=== PATIENT | female | born 1930 | race Caucasian/White ===

== ENCOUNTER 2017-03-19 18:00 | Inpatient (IN) | payer BC ==
--- NOTE | ~2017-03-19 | HP ---
History And Physical [place] [id number] [facility] [place]. [address] NAME: NELIDA CARRINGTON : 32 STATUS : ADM Gladys PAT#: [id number] AGE: 86 ADM/REG DATE : 03/19/17 MR#: [id number] REPORT SERV DATE: 03/20/17 DICTATED BY: JULIO DUBOIS DATE: 03/20/17 REPORT STATUS : Draft TRANSCRIBED BY: MODL DATE: 03/20/17 DATE OF ADMISSION: 03/19/2017 CHIEF COMPLAINT: Fall at home and shortness of breath. HISTORY OF PRESENT ILLNESS: This is an 86-year-old female who presents to the emergency room at [facility] after she sustained a fall and had severe difficulty breathing. History is obtained from the patient, her family who is at bedside, and reviewing data available on the [employer] system. According to Mrs. Carrington, she was in her usual state of health at home when she inadvertently tripped over another leg and fell down in her room. In the process of doing this, she hit her chest against a doorknob and started experiencing severe pain in the left side along with severe shortness of breath. She was unable to get up, and her who was in the next room who had come running in after hearing her fall was unable to help her get up. They called 911 and the used equipment sales representative who showed up were able to get her up and bring her to the hospital. In the emergency room, she had a moderate left hemopneumothorax as reported on the CT scan of her chest. This was as a result of fracture of the ribs 9, 10, and 11 on the left side. She had mild elevation of her troponin as well. The ER physician had placed a PneumoDart and Hospitalist Service was asked to admit her for further evaluation and treatment. At the time of my evaluation, Mrs. Carrington had chest pain due to rib fractures. Otherwise, she was quite comfortable. She had no palpitations or orthopnea. She had no cough, hemoptysis, night sweats, or weight loss prior to her fall. No history of loss of consciousness. She did not have any fevers, chills, nausea, vomiting, diarrhea, hematemesis, hematochezia, or hematuria. No other history of recent travel or exposures other than those mentioned above. PAST MEDICAL HISTORY: Significant for history of hypertension and history of paroxysmal atrial fibrillation. SOCIAL HISTORY: She does not smoke, drink, or use recreational drugs. FAMILY HISTORY: Noncontributory. MEDICATIONS: At home were reviewed by me in the chart today and reordered by me. REVIEW OF SYSTEMS: As in history of present illness. All other systems were reviewed in detail and are quite unremarkable. PHYSICAL EXAMINATION: GENERAL: This is a pleasant 86-year-old, not in any acute distress. HEENT: Her head is atraumatic, normocephalic. She is alert, awake, oriented to time, place, History And Physical [address] [address] NAME: NELIDA CARRINGTON : 32 STATUS : ADM Gladys PAT#: [id number] AGE: 86 ADM/REG DATE : 03/19/17 MR#: [id number] REPORT SERV DATE: 03/20/17 DICTATED BY: JULIO DUBOIS DATE: 03/20/17 REPORT STATUS : Draft TRANSCRIBED BY: RUBINA DATE: 03/20/17 and person. Her pupils are equal, reacting to light and accommodating. External ocular muscles are intact. Membranes are moist. Sclerae are nonicteric. NECK: Supple with no jugular venous distention, lymphadenopathy, or thyromegaly. LUNGS: Clear to auscultation. There were no wheezes, rubs, or crackles. HEART: Heart sounds were regular with no murmurs, rubs, or gallops. ABDOMEN: Soft, nontender. Bowel sounds are present. EXTREMITIES: No cyanosis, clubbing, or edema. NEUROLOGIC: Grossly intact. No focal sensory or motor deficits. She was able to move all four extremities. Higher functions were intact. VITAL SIGNS: Her vital signs today showed a temperature of 97.8, pulse was 71, respirations 18 to 20 a minute, blood pressure was 161/69, and oxygen saturations were 93% breathing 2 L of oxygen via nasal cannula. LABORATORY DATA: Reviewed on the [employer] system showed a normal CMP with a blood glucose of 98. Liver parameters were within normal limits. Her troponin was 0.04, and CBC was essentially within normal limits as well. Urinalysis was grossly unremarkable today. Radiology films were unable to be reviewed by me on the PAC system. Only virtual radiology was able to see the films. The reports for the CT scans were reviewed by me. According to the CT scan report, there is moderate left hemopneumothorax with fracture ribs on 9, 10, and 11. A 12-lead EKG done in the emergency room was reviewed and interpreted by me. There is normal sinus rhythm at a rate of 69 per minute with right bundle branch block. IMPRESSION: 1. Fall at home. 2. Moderate left hemopneumothorax, status post small bowel chest tube placement by the ER physician. 3. Rib fractures on 9, 10, and 11 on the left chest. 4. Elevated troponin. 5. Right bundle-branch block. 6. Hypertension. 7. History of atrial fibrillation, currently in sinus rhythm. PLAN: We will admit Mrs. Carrington to the Hospitalist Service with telemetry for a 24-hour observation period. We will establish pain control with Dilaudid given intravenously in very low doses as needed. We will start her on bronchodilator treatments, continue supplemental oxygen therapy, and monitor her oxygen saturations closely. A small bowel 18-Colombian chest tube was placed in the emergency room by Dr. Landis and postprocedure films were reviewed by him and reported by him as a solution of the pneumothorax. Thoracic Surgery was called by Dr. Landis, and he spoke with Dr. Cabrales, who was okay with the procedure and admission to the Hospitalist Service and they will see him in the morning. Her atrial fibrillation is now in sinus rhythm. We will follow serial troponins to rule out acute coronary syndrome as well. We will continue all her other medications and treatments at this time. We will check her CBC and CMP in the morning as well and make sure there is no further worsening of her hemothorax with a chest x-ray done in the morning as well. Please see today's orders for all the details. I have discussed the above plans with the patient and the family. They are agreeable to the above History And Physical [address] [address] NAME: NELIDA CARRINGTON : 32 STATUS : ADM Gladys PAT#: [id number] AGE: 86 ADM/REG DATE : 03/19/17 MR#: [id number] REPORT SERV DATE: 03/20/17 DICTATED BY: JULIO DUBOIS DATE: 03/20/17 REPORT STATUS : Draft TRANSCRIBED BY: RUBINA DATE: 03/20/17 recommendations. Hospitalist Service will be following her during her stay here. /RUBINA Julio Dubois M.D. / [id number] CC: Destin Rawls M.D.
--- NOTE | ~2017-03-19 | DS ---
Discharge Summary [facility] [address] [place] [address] NAME: NELIDA CARRINGTON : 32 STATUS : DIS IN PAT#: [id number] AGE: 86 ADM/REG DATE : 03/19/17 MR#: [id number] REPORT SERV DATE: 03/27/17 DICTATED BY: QUINN PAVON DATE: 03/26/17 REPORT STATUS : Draft TRANSCRIBED BY: MODL DATE: 03/26/17 ADMISSION DATE: 03/19/2017 DISCHARGE DATE: 03/26/2017 Ms Carrington is an 86-year-old female with a history of hypertension, who presented to the hospital with a complaint of a ground level fall and shortness of breath. For further details please refer to H and P dictated by Dr. Pisano on 03/19/2017. HOSPITAL COURSE: I assumed care of the patient on 03/23/2017. At the time of my assumption of care, the patient already had a chest tube placed with re-expansion of her lungs, she was being followed by CT Surgery. Tube was subsequently pulled and the patient tolerated the procedure. Also at the time of my evaluation, the patient appeared to be very unsteady feet and it was determined that home would not be an appropriate discharge for her given that she presented to hospital with complications of a ground level fall, therefore Case Management was subsequently consulted to assist with placement. The patient had an extended stay due to difficulty finding rehab placement for patient due to her insurance. Case Management has worked diligently trying to find a place for the patient, a facility has been found, insurance approval has been obtained, and under my care the patient has remained hemodynamically stable. Given completion of workup and resolution of presenting symptoms, the patient was subsequently be discharged to rehab. Plan has been discussed with the patient and family who voiced understanding and are agreeable with this plan. For further details about pulmonary involvement please refer to consultation note by Dr. Cabrales on 03/22/2017. DISCHARGE DIAGNOSES: 1. Left pneumothorax. 2. Multiple rib fractures. 3. Hypertension. 4. Rheumatoid arthritis. 5. Hypokalemia. 6. Hyponatremia. 7. Constipation. DISCHARGE MEDICATIONS: 1. Amlodipine 5 mg p.o. daily. 2. Atenolol 50 mg p.o. twice a day. 3. Ranitidine 150 mg p.o. at bedtime. 4. Senna two tablets p.o. at bedtime. 5. DuoNeb q.4 hours p.r.n. 6. [place] 5/325 mg tablet, take one to two tablets p.o. q.4 hours p.r.n. for pain. 7. Ativan 0.5 mg p.o. p.r.n. for anxiety. 8. Vitamin D 1000 units p.o. daily. 9. Vitamin B12 1000 mcg p.o. daily. 10.Folic acid 800 mcg p.o. daily. 11.Calcium with vitamin D 1500 mg p.o. daily. 12.Methotrexate 10 mg p.o. q.7 days. Discharge Summary [address] [address] NAME: NELIDA CARRINGTON : 32 STATUS : DIS IN PAT#: [id number] AGE: 86 ADM/REG DATE : 03/19/17 MR#: [id number] REPORT SERV DATE: 03/27/17 DICTATED BY: QUINN PAVON DATE: 03/26/17 REPORT STATUS : Draft TRANSCRIBED BY: RUBINA DATE: 03/26/17 IMAGIN. Chest x-ray, PA and lateral. Impression:. a. Status post removal of left chest tube, there is no pneumothorax. b. Persistent left pleural effusion with left bibasilar atelectasis or consolidation. 2. CT chest without contrast. Impression: Small to moderate left pneumothorax with small left pleural fluid likely represents some hemothorax component. For further details please refer to CT chest without contrast obtained on 03/19/2017. CONSULTANTS: Pulmonology. DISPOSITION: The patient will be discharged to rehab. ACTIVITY: As tolerated. DIET: Regular. Greater than 30 minutes were spent on coordinating care, medication reconciliation, dictation of note. DICTATED BY: MD MARI Rushing/RUBINA Quinn Pavon MD / [id number] CC: MD Arun Rushing M.D.
--- NOTE | ~2017-03-19 | CN ---
Consultation Report [facility] [address] [place]. [address] NAME: NELIDA CARRINGTON : 32 STATUS : ADM Gladys PAT#: [id number] AGE: 86 ADM/REG DATE : 03/19/17 MR#: [id number] REPORT SERV DATE: 03/22/17 DICTATED BY: EBONY CABRALES JR. DATE: 03/22/17 REPORT STATUS : Draft TRANSCRIBED BY: MODL DATE: 03/22/17 CONSULTATION DATE OF CONSULTATION: 03/22/2017 REASON FOR CONSULTATION: Pneumothorax. BRIEF HISTORY: This is an 86-year-old white female who presented to the emergency room at [facility] on 03/20 after falling. She had tripped and fell against a doorknob and started experiencing severe pain along her left chest wall with associated severe shortness of breath. She eventually was brought to the emergency room were on chest x-ray as well as CT scan. She was noted to have a moderate left hydropneumothorax with fractures of the left 9, 10, and 11 ribs. There is also mild elevation of troponin. She underwent placement of a PneumoDart by the ER physician. The lung re-expanded well on x-ray and we were asked to see her for further recommendations. 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 PAST SURGICAL HISTORY: Includes right and left hand surgery, hysterectomy, tonsillectomy and adenoidectomy, removal of a cyst in her left breast twice, left eye stent and cataract removal, partial gastrectomy in colon resection, vertebral cement placement after fracture, and kyphoplasty. SOCIAL HISTORY: The patient does not smoke, drink alcohol, or use recreational drugs. She is and lives in [facility]. FAMILY HISTORY: Not significant for any early coronary artery disease or malignancies. It is otherwise noncontributory. ALLERGIES: PERCOCET AND SULFA, BOTH OF WHICH CAUSE A RASH. CIPRO, WHICH CAUSES A RASH. MORPHINE AND ACETAMINOPHEN, WHICH CAUSE GI UPSET. HOME MEDICATIONS: Include Tenormin 50 mg p.o. twice daily, Norvasc 5 mg p.o. daily, aspirin 81 mg p.o. daily, Zantac 150 mg p.o. daily at bedtime, vitamin D 1000 units p.o. daily, vitamin B12 1000 mcg p.o. daily, folic acid 800 mg p.o. daily, GenTeal one drop to the eyes three times daily as needed for dryness, Ativan 0.5 mg p.o. daily as needed for anxiety, multivitamin one p.o. daily, Os-Rafael plus D 500 mg tablets three p.o. daily, methotrexate 10 mg p.o. every seven days four tablets one time a week on Wednesday. REVIEW OF SYSTEMS: Significant for joint pain, indigestion, chest wall pain. Complete 12-point review of systems done, all other systems negative except the above-mentioned pertinent positives in Consultation Report [facility] [address] [place]. [address] NAME: NELIDA CARRINGTON : 32 STATUS : ADM Gladys PAT#: [id number] AGE: 86 ADM/REG DATE : 03/19/17 MR#: [id number] REPORT SERV DATE: 03/22/17 DICTATED BY: EBONY CABRALES JR. DATE: 03/22/17 REPORT STATUS : Draft TRANSCRIBED BY: RUBINA DATE: 03/22/17 the history of present illness. PHYSICAL EXAMINATION: GENERAL: An 86-year-old, white female, alert, in no acute distress appearing her stated age. HEAD, EARS, EYES, NOSE, AND THROAT: Normocephalic, atraumatic. Pupils equal, round and reactive to light. Ears, nose, and throat without drainage, lesions, or exudates noted. NECK: Supple. No lymphadenopathy. JVD or bruits noted. Trachea midline. No obvious goiter. CHEST: Symmetrical bilateral movement noted. Chest wall deformities noted. There is an indwelling left chest tube. CARDIOVASCULAR: Revealed regular rate and rhythm. S1, S2. No gallop, murmur, or rub. RESPIRATORY: Lungs clear, but diminished in the bases to anterior auscultation. GASTROINTESTINAL: Abdomen is soft, nontender, nondistended. Positive bowel sounds in all four quadrants. No hepatosplenomegaly noted. EXTREMITIES: Without clubbing, cyanosis, or edema. 3+ pulses bilaterally. NEURO: All 12 cranial nerves intact. No focal neurologic deficits noted. She is alert and oriented x3. MUSCULOSKELETAL: With rheumatoid arthritis changes in her hands and feet. There are no significant bony abnormalities otherwise. Normal range of motion in all four extremities. : The patient voids without difficulty, otherwise deferred. SKIN: Warm and dry with no breakdown or lesions noted. Normal turgor. CONSTITUTIONAL: Blood pressure 151/69, oxygen saturation 96%, temperature 98.4, respirations 18, weight 48.7 kg, height 4 feet 11 inches. PSYCH: Normal mood, affect, and pleasant. Answers all questions appropriately. HEMATOLOGIC/LYMPHATIC: Without any obvious petechiae or ecchymosis noted. There is no supraclavicular, cervical, or axillary lymphadenopathy noted. DATA: CT of the chest performed 03/19/2017 showing small to moderate left pneumothorax with small left pleural effusion. There is patchy consolidation in the posterior basilar aspect of the left lower lobe possibly representing contusion, atelectasis, and/or pneumonia. There is fractures of the left 7th, 8th, and 11th ribs. There is evidence of previous vertebral augmentations at T12 through L2. Chest x-ray dated 03/22/2017 showing no pneumothorax. There is continued left basilar consolidation and atelectasis with possible small left effusion. Labs on 03/22/2017; sodium 134, potassium 3.7, BUN 8, creatinine 0.41, glucose 91. White blood count 4.7, hemoglobin 11.9, hematocrit 34.1, platelet 158. IMPRESSION/PLAN: An 86-year-old white female, status post fall with fractures of multiple left ribs. She had a large pneumothorax, which re-expanded with placement of a pigtail catheter in the left chest. There is still contusion and/or atelectasis of the left base. We are asked to see her for management of chest tube and further recommendations. Chest tube has been clamped overnight, and she has had no significant changes. Likely, this could Consultation Report [place] [id number] [place]. [address] NAME: NELIDA CARRINGTON : 32 STATUS : ADM Gladys PAT#: [id number] AGE: 86 ADM/REG DATE : 03/19/17 MR#: [id number] REPORT SERV DATE: 03/22/17 DICTATED BY: EBONY CABRALES JR. DATE: 03/22/17 REPORT STATUS : Draft TRANSCRIBED BY: MODL DATE: 03/22/17 be removed. She will need to be followed with chest x-ray for the next few weeks just to make sure there is no accumulation of pleural fluid. She also will need to be monitored for development of pneumonias. We will plan on removing the chest tube later today and proceed as outlined above. DICTATED BY: TORREY Bourgeois/RUBINA Ebony Cabrales Jr., M.D. / [id number] CC: Brian Tate M.D.
[~2017-03-19 18:00] MED LIST: ACET500CAP PO; ACIPHEX PO; ASAB PO; ATEN50 PO; ATV.5 PO; ATV1 PO; B12; BENICAR40 PO; CALTRA600D PO; CENTRUM TAB1 TAB PO; CYANO1000T PO; FOLIC ACI; FOLIC ACID400 MC1 PO; FOLIC PO; GARLIQUE PO; GENTEAL OPH; HYDROCHLOROT25 MG PO; LORTAB 5 PO; MTX2.5 PO; MULTIPLE VIT PO; NEXIUM40 PO; NORCO1 TA1 PO; NORV10 PO; NORV5 PO; OS500+D PO; PLAVIX PO; PRILOSEC40 MG PO; PROTONIX PO; PROTONIX20 MG PO; RASUVO SC; SUCR PO; TREXALL10 MG PO; TYLENOL ARTH650 MG PO; VITAMIN D1000 UNI1 PO; VITAMIN D31000 UNIT PO; ZANTAC 150 PO
[2017-03-19 19:47] LABS: BASOPHILS 0.1 %; BASOPHILS ABSOLUTE 0.01 10/3/uL (0.0-0.16); EOSINOPHILS 1.2 %; ER CBC TAT 0 Hrs 07 Mins; HEMATOCRIT 38.3 % (36.0-48.0); HEMOGLOBIN 12.7 g/dL (12.0-16.0); IMMATURE GRANULOCYTES 0.1 %; IMMATURE GRANULOCYTES ABSOLUTE 0.01 10/3/uL (0.0-0.11); LYMPHOCYTES 8.5 %; LYMPHOCYTES ABSOLUTE 0.71 10/3/uL (0.67-4.30); MEAN CORPUS HGB CONC 33.2 g/dL (32.0-36.0); MEAN CORPUSCULAR HEMOGLOB 31.4 pg (26.0-34.0); MEAN CORPUSCULAR VOLUME 94.8 fL (80-100); MEAN PLATELET VOLUME 9.7 fL (9.2-13.0); MONOCYTES 5.7 %; MONOCYTES ABSOLUTE 0.48 10/3/uL (0.21-1.20); NEUTROPHILS 84.4 %; NEUTROPHILS ABSOLUTE 7.04 10/3/uL (2.02-8.40); RBC DISTRIBUTION WIDTH 13.6 % (12.0-16.0); RED CELL COUNT 4.04 10/6/uL (4.0-5.6); WHITE BLOOD CELLS 8.4 10/3/uL (4.5-10.5)
[2017-03-19 19:53] LABS: MANUAL DIFF NO %; PLATELET COUNT 190 10/3/uL (150-400)
[2017-03-19 20:03] LABS: ALBUMIN 3.3 G/DL (3.5-5.0); ALKALINE PHOSPHATASE 91 U/L (45-117); BUN (BLOOD UREA NITROGEN) 18 MG/DL (6-23); CALCIUM, SERUM 8.3 MG/DL (8.5-10.4); CHLORIDE, SERUM 102 MMOL/L (96-112); CO2 (CARBON DIOXIDE) 26 MMOL/L (24-34); CREATININE 0.73 MG/DL (0.55-1.02); GFR AFRICAN AMERICAN 88 ML/MIN (>=60); GFR NON AFRICAN AMERICAN 76 ML/MIN (>=60); GLOBULIN 3.4 G/DL (2.5-4.1); GLUCOSE, SERUM 98 MG/DL (60-99); POTASSIUM, SERUM 3.9 MMOL/L (3.5-5.3); SGOT(AST) 28 U/L (5-40); SGPT(ALT) 22 U/L (5-65); SODIUM, SERUM 137 MMOL/L (135-148); TOTAL BILIRUBIN 0.7 MG/DL (0-1.2); TOTAL PROTEIN 6.7 G/DL (6.0-8.5); TROPONIN I 0.04 NG/ML (<0.05)
[2017-03-19 20:52] LABS: ASCORBIC ACID (UR NOT ORDER) NEG (NEG); BILIRUBIN, URINE NEGATIVE (NEG); ER URINALYSIS TAT 0 Hrs 13 Mins; KETONE, URINE TRACE MG/DL (NEG); LEUKOCYTE ESTERASE(NOT OR NEG (NEG); NITRITE (URINE) NEG (NEG); WBC (NOT ORDERED) (RFLEX) 1 (0-5)
[2017-03-20 03:25] LABS: BASOPHILS 0.3 %; BASOPHILS ABSOLUTE 0.02 10/3/uL (0.0-0.16); EOSINOPHILS 2.7 %; EOSINOPHILS ABSOLUTE 0.19 10/3/uL (0.0-0.53); HEMATOCRIT 35.6 % (36.0-48.0); IMMATURE GRANULOCYTES 0.1 %; IMMATURE GRANULOCYTES ABSOLUTE 0.01 10/3/uL (0.0-0.11); LYMPHOCYTES 12.2 %; LYMPHOCYTES ABSOLUTE 0.85 10/3/uL (0.67-4.30); MEAN CORPUS HGB CONC 33.7 g/dL (32.0-36.0); MEAN CORPUSCULAR HEMOGLOB 32.2 pg (26.0-34.0); MEAN CORPUSCULAR VOLUME 95.4 fL (80-100); MEAN PLATELET VOLUME 9.2 fL (9.2-13.0); MONOCYTES 5.9 %; MONOCYTES ABSOLUTE 0.41 10/3/uL (0.21-1.20); NEUTROPHILS 78.8 %; NEUTROPHILS ABSOLUTE 5.46 10/3/uL (2.02-8.40); PLATELET COUNT 183 10/3/uL (150-400); RBC DISTRIBUTION WIDTH 13.7 % (12.0-16.0); RED CELL COUNT 3.73 10/6/uL (4.0-5.6); WHITE BLOOD CELLS 6.9 10/3/uL (4.5-10.5)
[2017-03-20 03:26] LABS: MANUAL DIFF NO %
[2017-03-20 03:43] LABS: BUN (BLOOD UREA NITROGEN) 18 MG/DL (6-23); CALCIUM, SERUM 8.1 MG/DL (8.5-10.4); CHLORIDE, SERUM 103 MMOL/L (96-112); CO2 (CARBON DIOXIDE) 24 MMOL/L (24-34); CREATININE 0.71 MG/DL (0.55-1.02); GFR AFRICAN AMERICAN 91 ML/MIN (>=60); GFR NON AFRICAN AMERICAN 78 ML/MIN (>=60); PHOSPHORUS, SERUM 3.2 MG/DL (2.5-4.5); POTASSIUM, SERUM 3.8 MMOL/L (3.5-5.3); SODIUM, SERUM 135 MMOL/L (135-148)
[2017-03-20 03:44] LABS: CK-MB 1.5 NG/ML; CPK 99 U/L (0-200); GLUCOSE, SERUM 124 MG/DL (60-99); TROPONIN I 0.05 NG/ML (<0.05)
[2017-03-20 11:30] LABS: CPK 103 U/L (0-200)
[2017-03-20 11:33] LABS: CK-MB 1.5 NG/ML; TROPONIN I 0.05 NG/ML (<0.05)
[2017-03-20 12:26] LABS: PROCALCITONIN 0.21 ng/mL (<0.5)
[2017-03-21 05:20] LABS: BASOPHILS 0.3 %; BASOPHILS ABSOLUTE 0.02 10/3/uL (0.0-0.16); EOSINOPHILS 3.8 %; EOSINOPHILS ABSOLUTE 0.24 10/3/uL (0.0-0.53); HEMATOCRIT 35.2 % (36.0-48.0); HEMOGLOBIN 11.8 g/dL (12.0-16.0); LYMPHOCYTES 12.2 %; LYMPHOCYTES ABSOLUTE 0.77 10/3/uL (0.67-4.30); MEAN CORPUS HGB CONC 33.5 g/dL (32.0-36.0); MEAN CORPUSCULAR HEMOGLOB 31.9 pg (26.0-34.0); MEAN CORPUSCULAR VOLUME 95.1 fL (80-100); MEAN PLATELET VOLUME 9.6 fL (9.2-13.0); MONOCYTES 6.3 %; NEUTROPHILS 77.4 %; NEUTROPHILS ABSOLUTE 4.87 10/3/uL (2.02-8.40); PLATELET COUNT 155 10/3/uL (150-400); RBC DISTRIBUTION WIDTH 13.3 % (12.0-16.0); WHITE BLOOD CELLS 6.3 10/3/uL (4.5-10.5)
[2017-03-21 05:25] LABS: MANUAL DIFF NO %
[2017-03-21 05:37] LABS: CHLORIDE, SERUM 101 MMOL/L (96-112); CO2 (CARBON DIOXIDE) 22 MMOL/L (24-34); CREATININE 0.42 MG/DL (0.55-1.02); GFR AFRICAN AMERICAN 109 ML/MIN (>=60); GFR NON AFRICAN AMERICAN 94 ML/MIN (>=60); GLUCOSE, SERUM 110 MG/DL (60-99); POTASSIUM, SERUM 3.9 MMOL/L (3.5-5.3); SODIUM, SERUM 132 MMOL/L (135-148)
[2017-03-21 05:40] LABS: BUN (BLOOD UREA NITROGEN) 9 MG/DL (6-23)
[2017-03-21 15:18] LABS: PROCALCITONIN 0.15 ng/mL (<0.5)
[2017-03-22 04:35] LABS: BASOPHILS 0.4 %; BASOPHILS ABSOLUTE 0.02 10/3/uL (0.0-0.16); EOSINOPHILS 6.5 %; EOSINOPHILS ABSOLUTE 0.31 10/3/uL (0.0-0.53); HEMATOCRIT 34.1 % (36.0-48.0); HEMOGLOBIN 11.9 g/dL (12.0-16.0); IMMATURE GRANULOCYTES 0.2 %; IMMATURE GRANULOCYTES ABSOLUTE 0.01 10/3/uL (0.0-0.11); LYMPHOCYTES 17.7 %; LYMPHOCYTES ABSOLUTE 0.84 10/3/uL (0.67-4.30); MEAN CORPUS HGB CONC 34.9 g/dL (32.0-36.0); MEAN CORPUSCULAR HEMOGLOB 32.6 pg (26.0-34.0); MEAN CORPUSCULAR VOLUME 93.4 fL (80-100); MEAN PLATELET VOLUME 9.5 fL (9.2-13.0); MONOCYTES 10.1 %; MONOCYTES ABSOLUTE 0.48 10/3/uL (0.21-1.20); NEUTROPHILS 65.1 %; NEUTROPHILS ABSOLUTE 3.08 10/3/uL (2.02-8.40); PLATELET COUNT 158 10/3/uL (150-400); RBC DISTRIBUTION WIDTH 13.1 % (12.0-16.0); RED CELL COUNT 3.65 10/6/uL (4.0-5.6); WHITE BLOOD CELLS 4.7 10/3/uL (4.5-10.5)
[2017-03-22 04:36] LABS: MANUAL DIFF NO %
[2017-03-22 04:46] LABS: BUN (BLOOD UREA NITROGEN) 8 MG/DL (6-23); CHLORIDE, SERUM 103 MMOL/L (96-112); CO2 (CARBON DIOXIDE) 24 MMOL/L (24-34); CREATININE 0.41 MG/DL (0.55-1.02); GFR AFRICAN AMERICAN 110 ML/MIN (>=60); GFR NON AFRICAN AMERICAN 95 ML/MIN (>=60); GLUCOSE, SERUM 91 MG/DL (60-99); POTASSIUM, SERUM 3.7 MMOL/L (3.5-5.3); SODIUM, SERUM 134 MMOL/L (135-148)
[2017-03-24 05:50] LABS: BASOPHILS 0.4 %; BASOPHILS ABSOLUTE 0.02 10/3/uL (0.0-0.16); EOSINOPHILS 6.5 %; HEMATOCRIT 33.1 % (36.0-48.0); HEMOGLOBIN 11.5 g/dL (12.0-16.0); IMMATURE GRANULOCYTES 0.2 %; IMMATURE GRANULOCYTES ABSOLUTE 0.01 10/3/uL (0.0-0.11); LYMPHOCYTES 15.4 %; LYMPHOCYTES ABSOLUTE 0.71 10/3/uL (0.67-4.30); MEAN CORPUS HGB CONC 34.7 g/dL (32.0-36.0); MEAN CORPUSCULAR HEMOGLOB 32.3 pg (26.0-34.0); MEAN PLATELET VOLUME 9.1 fL (9.2-13.0); MONOCYTES 14.3 %; MONOCYTES ABSOLUTE 0.66 10/3/uL (0.21-1.20); NEUTROPHILS 63.2 %; NEUTROPHILS ABSOLUTE 2.91 10/3/uL (2.02-8.40); PLATELET COUNT 194 10/3/uL (150-400); RBC DISTRIBUTION WIDTH 13.2 % (12.0-16.0); RED CELL COUNT 3.56 10/6/uL (4.0-5.6); WHITE BLOOD CELLS 4.6 10/3/uL (4.5-10.5)
[2017-03-24 05:51] LABS: MANUAL DIFF NO %
[2017-03-24 06:10] LABS: BUN (BLOOD UREA NITROGEN) 5 MG/DL (6-23); CHLORIDE, SERUM 102 MMOL/L (96-112); CO2 (CARBON DIOXIDE) 23 MMOL/L (24-34); GFR AFRICAN AMERICAN 111 ML/MIN (>=60); GFR NON AFRICAN AMERICAN 96 ML/MIN (>=60); GLUCOSE, SERUM 87 MG/DL (60-99); POTASSIUM, SERUM 3.2 MMOL/L (3.5-5.3); SGOT(AST) 22 U/L (5-40); SGPT(ALT) 15 U/L (5-65); SODIUM, SERUM 134 MMOL/L (135-148); TOTAL BILIRUBIN 0.5 MG/DL (0-1.2)
[2017-03-24 06:11] LABS: A/G RATIO 0.8 (0.7-1.9); ALBUMIN 2.3 G/DL (3.5-5.0); ALKALINE PHOSPHATASE 63 U/L (45-117); GLOBULIN 2.9 G/DL (2.5-4.1); TOTAL PROTEIN 5.2 G/DL (6.0-8.5)
[2017-03-25 04:39] LABS: BASOPHILS 0.6 %; BASOPHILS ABSOLUTE 0.03 10/3/uL (0.0-0.16); EOSINOPHILS 6.8 %; EOSINOPHILS ABSOLUTE 0.32 10/3/uL (0.0-0.53); HEMOGLOBIN 13.2 g/dL (12.0-16.0); IMMATURE GRANULOCYTES 0.4 %; IMMATURE GRANULOCYTES ABSOLUTE 0.02 10/3/uL (0.0-0.11); LYMPHOCYTES ABSOLUTE 1.08 10/3/uL (0.67-4.30); MEAN CORPUS HGB CONC 33.6 g/dL (32.0-36.0); MEAN CORPUSCULAR HEMOGLOB 31.7 pg (26.0-34.0); MEAN CORPUSCULAR VOLUME 94.5 fL (80-100); MEAN PLATELET VOLUME 9.4 fL (9.2-13.0); MONOCYTES 10.7 %; NEUTROPHILS 58.5 %; NEUTROPHILS ABSOLUTE 2.74 10/3/uL (2.02-8.40); RBC DISTRIBUTION WIDTH 13.7 % (12.0-16.0); RED CELL COUNT 4.16 10/6/uL (4.0-5.6); WHITE BLOOD CELLS 4.7 10/3/uL (4.5-10.5)
[2017-03-25 04:42] LABS: HEMATOCRIT 39.3 % (36.0-48.0); PLATELET COUNT 259 10/3/uL (150-400)
[2017-03-25 04:43] LABS: MANUAL DIFF NO %
[2017-03-25 04:55] LABS: BUN (BLOOD UREA NITROGEN) 3 MG/DL (6-23); CALCIUM, SERUM 8.8 MG/DL (8.5-10.4); CHLORIDE, SERUM 104 MMOL/L (96-112); CO2 (CARBON DIOXIDE) 24 MMOL/L (24-34); CREATININE 0.45 MG/DL (0.55-1.02); GFR AFRICAN AMERICAN 107 ML/MIN (>=60); GFR NON AFRICAN AMERICAN 92 ML/MIN (>=60); GLUCOSE, SERUM 95 MG/DL (60-99); POTASSIUM, SERUM 4.4 MMOL/L (3.5-5.3); SGOT(AST) 32 U/L (5-40); SGPT(ALT) 22 U/L (5-65); SODIUM, SERUM 135 MMOL/L (135-148); TOTAL BILIRUBIN 0.5 MG/DL (0-1.2); TOTAL PROTEIN 6.1 G/DL (6.0-8.5)
[2017-03-25 05:01] LABS: A/G RATIO 0.8 (0.7-1.9); ALBUMIN 2.8 G/DL (3.5-5.0); ALKALINE PHOSPHATASE 79 U/L (45-117); GLOBULIN 3.3 G/DL (2.5-4.1)
[2017-03-26 04:33] LABS: BASOPHILS 0.6 %; BASOPHILS ABSOLUTE 0.03 10/3/uL (0.0-0.16); EOSINOPHILS ABSOLUTE 0.37 10/3/uL (0.0-0.53); HEMOGLOBIN 11.7 g/dL (12.0-16.0); IMMATURE GRANULOCYTES 0.2 %; IMMATURE GRANULOCYTES ABSOLUTE 0.01 10/3/uL (0.0-0.11); LYMPHOCYTES 21.8 %; LYMPHOCYTES ABSOLUTE 1.15 10/3/uL (0.67-4.30); MEAN CORPUS HGB CONC 33.7 g/dL (32.0-36.0); MEAN CORPUSCULAR HEMOGLOB 31.8 pg (26.0-34.0); MEAN CORPUSCULAR VOLUME 94.3 fL (80-100); MEAN PLATELET VOLUME 9.2 fL (9.2-13.0); MONOCYTES 9.7 %; MONOCYTES ABSOLUTE 0.51 10/3/uL (0.21-1.20); NEUTROPHILS 60.7 %; NEUTROPHILS ABSOLUTE 3.21 10/3/uL (2.02-8.40); PLATELET COUNT 258 10/3/uL (150-400); RBC DISTRIBUTION WIDTH 13.5 % (12.0-16.0); RED CELL COUNT 3.68 10/6/uL (4.0-5.6); WHITE BLOOD CELLS 5.3 10/3/uL (4.5-10.5)
[2017-03-26 04:34] LABS: HEMATOCRIT 34.7 % (36.0-48.0); MANUAL DIFF NO %
[2017-03-26 04:48] LABS: A/G RATIO 0.8 (0.7-1.9); ALBUMIN 2.5 G/DL (3.5-5.0); ALKALINE PHOSPHATASE 75 U/L (45-117); BUN (BLOOD UREA NITROGEN) 4 MG/DL (6-23); CALCIUM, SERUM 8.2 MG/DL (8.5-10.4); CHLORIDE, SERUM 100 MMOL/L (96-112); CO2 (CARBON DIOXIDE) 25 MMOL/L (24-34); CREATININE 0.34 MG/DL (0.55-1.02); GFR AFRICAN AMERICAN 117 ML/MIN (>=60); GFR NON AFRICAN AMERICAN 101 ML/MIN (>=60); GLUCOSE, SERUM 83 MG/DL (60-99); POTASSIUM, SERUM 4.1 MMOL/L (3.5-5.3); SGOT(AST) 37 U/L (5-40); SGPT(ALT) 27 U/L (5-65); SODIUM, SERUM 134 MMOL/L (135-148); TOTAL BILIRUBIN 0.8 MG/DL (0-1.2); TOTAL PROTEIN 5.5 G/DL (6.0-8.5)
== END 2017-03-26 17:52 | DRG 200 ==
LOC: ER 18:00 → 4SO 23:22 → 5NO 23:39
PROVIDERS: Emergency Medicine; Hospitalist; Internal Medicine; Internal Medicine Pulmonary Disease
PROC: 0W9B30Z Drainage of Left Pleural Cavity with Drainage Device, Percutaneous Approach (ICD-10-PCS; principal; 2017-03-19)
DX: S27.2XXA Traumatic hemopneumothorax, initial encounter (principal); S22.42XA Multiple fractures of ribs, left side, initial encounter for closed fracture; I48.0 Paroxysmal atrial fibrillation; W01.198A Fall on same level from slipping, tripping and stumbling with subsequent striking against other object, initial encounter; Z91.81 History of falling; I10 Essential (primary) hypertension; M06.9 Rheumatoid arthritis, unspecified; K21.9 Gastro-esophageal reflux disease without esophagitis; F41.9 Anxiety disorder, unspecified; Z88.1 Allergy status to other antibiotic agents; Z88.2 Allergy status to sulfonamides; Z79.82 Long term (current) use of aspirin
CPT/HCPCS: 71010; 71020; 71100-LT; 71250; 80048; 80053; 81001; 82550; 82553; 83735; 84100; 84132; 84145; 84484; 85025; 87040; 93005; 94640; 96374; 96375; 97110-GO; 97161-GP; 97165-GO; 97530-GP; 97535-GO; 99285; A9270-GY; C9113; J1170; J2405